=== PATIENT | female | born 1940 | race Caucasian/White ===

== ENCOUNTER 2021-12-08 14:23 | Inpatient (IN) | payer MEDICARE ==
[~2021-12-08] VITALS: Ht 160 cm; Wt 54.5 kg
[2021-12-08 15:10] LABS: BASOPHILS # (AUTO) 0.1 (0.0-0.1); EOSINOPHILS # (AUTO) 0.1 (0.0-0.4); EOSINOPHILS % 1.7 % (0.0-6.0); HEMOGLOBIN 10.6 g/dL (12.0-16.0); LYMPHOCYTES # (AUTO) 2.1 (1.0-3.2); MEAN CORPUSCULAR HGB CONC 31.2 g/dL (31-35); MEAN CORPUSCULAR VOLUME 86.5 fL (81-99); MONOCYTES # (AUTO) 0.8 (0.2-0.8); MONOCYTES % 11.5 % (4.4-11.3); NEUTROPHILS % 56.5 % (38.7-80.0); PLATELET COUNT 324 x10e3/uL (140-360); RED BLOOD COUNT 3.93 x10e6/uL (3.6-5.1); RED CELL DISTRIBUTION WIDTH 14.1 % (11.7-14.4)
[2021-12-08 15:22] LABS: ALBUMIN 3.1 g/dL (3.5-5.0); ALBUMIN/GLOBULIN RATIO 0.8 (0.8-2.0); ANION GAP 15.2 mmol/L (8-16); CALCIUM 8.9 mg/dL (8.4-10.2); CREATININE, SERUM 0.81 mg/dL (0.57-1.11); POTASSIUM 3.2 mmol/L (3.5-5.1)
[2021-12-08] MEDS ORDERED: SODIUM CHLORIDE 0.9% 1000ML 1,000 ML IV STA (15:56)
[2021-12-08] MEDS ORDERED: KETOROLAC TROMETHAMINE 30 MG/ML VIAL IV STA (15:56)
[2021-12-08] MEDS ORDERED: ONDANSETRON HCL INJ 2MG/ML 2ML 2 MG/ML VIAL IV PRN (16:00)
[2021-12-08] MEDS ORDERED: XARELTO10 MG PO (17:14)
[2021-12-08] MEDS ORDERED: CITALOPRAM HBR40 MG PO (17:14)
[2021-12-08] MEDS ORDERED: CARVEDILOL12.5 MG PO (17:14)
[2021-12-08] MEDS ORDERED: ULTRAM 50MG50 MG PO (17:14)
[2021-12-08] MEDS ORDERED: LOSARTAN POTASS25 MG PO (17:14)
[2021-12-08] MEDS ORDERED: CLONAZEPAM1 MG PO (17:14)
[2021-12-08 18:36] VITALS: BP 156/56
[2021-12-08 20:00] VITALS: BP 157/56
[2021-12-08] MEDS: KETOROLAC TROMETHAMINE 30 MG/ML VIAL IV PRN (22:03)
[2021-12-09] VITALS (7 sets, daily range): BP systolic 160–192; BP diastolic 57–85
[2021-12-09] MEDS: SODIUM CHLORIDE 0.9% 1000ML 1,000 ML IV SCH ×4 (00:16→17:14)
[2021-12-09 06:04] LABS: BASOPHILS # (AUTO) 0.1 (0.0-0.1); EOSINOPHILS # (AUTO) 0.1 (0.0-0.4); EOSINOPHILS % 2.9 % (0.0-6.0); HEMATOCRIT 29.9 % (34.2-44.1); HEMOGLOBIN 9.3 g/dL (12.0-16.0); LYMPHOCYTES # (AUTO) 2.1 (1.0-3.2); LYMPHOCYTES % 42.1 % (18.0-39.1); MEAN CORPUSCULAR HGB CONC 31.1 g/dL (31-35); MEAN CORPUSCULAR VOLUME 86.7 fL (81-99); MONOCYTES # (AUTO) 0.7 (0.2-0.8); MONOCYTES % 14.5 % (4.4-11.3); NEUTROPHILS # (AUTO) 1.9 (2.1-6.9); NEUTROPHILS % 39.3 % (38.7-80.0); PLATELET COUNT 257 x10e3/uL (140-360); RED BLOOD COUNT 3.45 x10e6/uL (3.6-5.1); RED CELL DISTRIBUTION WIDTH 14.1 % (11.7-14.4)
[2021-12-09 06:31] LABS: ANION GAP 9.8 mmol/L (8-16); CALCIUM 8.5 mg/dL (8.4-10.2); CREATININE, SERUM 0.72 mg/dL (0.57-1.11)
[2021-12-09 06:59] LABS: POTASSIUM 2.8 mmol/L (3.5-5.1)
[2021-12-09] MEDS ORDERED: POTASSIUM CHLORIDE 20MEQ/100ML 100 ML IV ONE ×2 (07:45→10:45)
[2021-12-09] MEDS: CITALOPRAM HYDROBROMIDE 20 MG TAB PO SCH (10:02)
[2021-12-09] MEDS: CLONAZEPAM 1 MG TAB PO SCH ×2 (10:02→17:15)
[2021-12-09] MEDS: LOSARTAN POTASSIUM 25 MG TAB PO SCH ×2 (10:03→17:15)
[2021-12-09] MEDS: RIVAROXABAN 10 MG TABLET PO SCH (10:03)
[2021-12-09] MEDS: CARVEDILOL 12.5 MG TAB PO SCH ×2 (10:04→17:14)
[2021-12-09] MEDS: CLINDAMYCIN PHOS 900MG/ 50ML 50 ML IV SCH ×2 (14:00→22:15)
[2021-12-09] MEDS ORDERED: POTASSIUM CHLORIDE 20 MEQ TAB CR PO SCH (18:00)
[2021-12-09] MEDS: KETOROLAC TROMETHAMINE 30 MG/ML VIAL IV PRN (20:19)
[2021-12-10] VITALS (9 sets, daily range): BP systolic 140–184; BP diastolic 63–80
[2021-12-10] MEDS: SODIUM CHLORIDE 0.9% 1000ML 1,000 ML IV SCH ×3 (00:01→16:08)
[2021-12-10] MEDS: CLONIDINE HCL 0.1 MG TAB PO PRN ×2 (00:01→12:02)
[2021-12-10] MEDS: CLINDAMYCIN PHOS 900MG/ 50ML 50 ML IV SCH (05:35)
[2021-12-10] MEDS: LOSARTAN POTASSIUM 25 MG TAB PO SCH ×2 (08:54→16:09)
[2021-12-10] MEDS: DOCUSATE SODIUM 100 MG CAP PO SCH ×2 (08:54→16:08)
[2021-12-10] MEDS: CLONAZEPAM 1 MG TAB PO SCH ×2 (08:54→16:09)
[2021-12-10] MEDS: CITALOPRAM HYDROBROMIDE 20 MG TAB PO SCH (08:54)
[2021-12-10] MEDS: RIVAROXABAN 10 MG TABLET PO SCH (08:55)
[2021-12-10] MEDS: CARVEDILOL 12.5 MG TAB PO SCH ×2 (08:55→16:09)
[2021-12-10 09:41] LABS: CREATININE, SERUM 0.75 mg/dL (0.57-1.11)
[2021-12-10] MEDS: KETOROLAC TROMETHAMINE 30 MG/ML VIAL IV PRN (20:28)
[2021-12-11] VITALS (9 sets, daily range): BP systolic 143–193; BP diastolic 53–69
[2021-12-11] MEDS: CLONIDINE HCL 0.1 MG TAB PO PRN (00:04)
[2021-12-11] MEDS: SODIUM CHLORIDE 0.9% 1000ML 1,000 ML IV SCH ×3 (00:04→16:00)
[2021-12-11] MEDS: HYDRALAZINE HCL 20 MG/ML VIAL IV PRN ×2 (06:06→11:43)
[2021-12-11 06:09] LABS: BASOPHILS # (AUTO) 0.1 (0.0-0.1); BASOPHILS % 0.8 % (0.0-1.0); EOSINOPHILS # (AUTO) 0.2 (0.0-0.4); EOSINOPHILS % 3.1 % (0.0-6.0); HEMATOCRIT 31.3 % (34.2-44.1); LYMPHOCYTES # (AUTO) 1.5 (1.0-3.2); LYMPHOCYTES % 22.7 % (18.0-39.1); MEAN CORPUSCULAR HEMOGLOBIN 27.4 pg (28-32); MEAN CORPUSCULAR HGB CONC 31.9 g/dL (31-35); MEAN CORPUSCULAR VOLUME 85.8 fL (81-99); MONOCYTES # (AUTO) 0.7 (0.2-0.8); MONOCYTES % 10.8 % (4.4-11.3); NEUTROPHILS % 62.1 % (38.7-80.0); PLATELET COUNT 278 x10e3/uL (140-360); RED BLOOD COUNT 3.65 x10e6/uL (3.6-5.1); RED CELL DISTRIBUTION WIDTH 14.3 % (11.7-14.4)
[2021-12-11 06:42] LABS: ALBUMIN 2.9 g/dL (3.5-5.0); ALBUMIN/GLOBULIN RATIO 0.9 (0.8-2.0); ANION GAP 9.5 mmol/L (8-16); CALCIUM 8.7 mg/dL (8.4-10.2); CREATININE, SERUM 0.69 mg/dL (0.57-1.11); MAGNESIUM 1.9 MG/DL (1.3-2.1); POTASSIUM 3.5 mmol/L (3.5-5.1)
[2021-12-11] MEDS: DOCUSATE SODIUM 100 MG CAP PO SCH ×2 (09:00→17:28)
[2021-12-11] MEDS: CLONAZEPAM 1 MG TAB PO SCH ×2 (09:00→17:29)
[2021-12-11] MEDS: CARVEDILOL 12.5 MG TAB PO SCH ×2 (09:00→17:29)
[2021-12-11] MEDS: LOSARTAN POTASSIUM 25 MG TAB PO SCH ×2 (09:00→17:29)
[2021-12-11] MEDS: KETOROLAC TROMETHAMINE 30 MG/ML VIAL IV PRN (09:06)
[2021-12-11] MEDS ORDERED: IOPAMIDOL 300MG/ML 100 ML INFUS..BTL IV ONE ×2 (14:31→14:59)
[2021-12-11] MEDS ORDERED: HEPARIN SOD/SOD CHLORIDE 2,000 ML ONE (14:31)
[2021-12-11] MEDS ORDERED: SODIUM CHLORIDE 0.9% 1000ML 1,000 ML ONE ×2 (14:32→15:01)
[2021-12-11] MEDS ORDERED: MIDAZOLAM HCL 2 MG/2 ML VIAL ONE ×3 (14:32→16:37)
[2021-12-11] MEDS ORDERED: FENTANYL CITRATE/PF 100MCG/2 ML INJ ONE ×2 (14:33→16:37)
[2021-12-11] MEDS ORDERED: VERAPAMIL HCL 2.5 MG/ML 2 ML VIAL ONE (15:02)
[2021-12-11] MEDS ORDERED: CLOPIDOGREL BISULFATE 75 MG TAB ONE (16:55)
[2021-12-11] MEDS ORDERED: ASPIRIN 325 MG TAB ONE (16:55)
[2021-12-11] MEDS: RIVAROXABAN 10 MG TABLET PO SCH (17:27)
[2021-12-11] MEDS: CITALOPRAM HYDROBROMIDE 20 MG TAB PO SCH (17:27)
[2021-12-12] VITALS (10 sets, daily range): BP systolic 151–196; BP diastolic 50–61
[2021-12-12] MEDS: LACTULOSE SYRUP 20 GM/30 ML UDC PO PRN (00:24)
[2021-12-12] MEDS: SODIUM CHLORIDE 0.9% 1000ML 1,000 ML IV SCH ×3 (08:00→16:00)
[2021-12-12] MEDS: ASPIRIN 81 MG CHEW TAB PO SCH (09:52)
[2021-12-12] MEDS: CITALOPRAM HYDROBROMIDE 20 MG TAB PO SCH (09:52)
[2021-12-12] MEDS: DOCUSATE SODIUM 100 MG CAP PO SCH ×2 (09:53→17:47)
[2021-12-12] MEDS: CARVEDILOL 12.5 MG TAB PO SCH ×2 (09:53→17:47)
[2021-12-12] MEDS: CLONAZEPAM 1 MG TAB PO SCH ×2 (09:54→17:47)
[2021-12-12] MEDS: CLOPIDOGREL BISULFATE 75 MG TAB PO SCH (09:54)
[2021-12-12] MEDS: RIVAROXABAN 10 MG TABLET PO SCH (09:54)
[2021-12-12] MEDS: LOSARTAN POTASSIUM 25 MG TAB PO SCH ×2 (09:54→17:47)
[2021-12-12] MEDS ORDERED: BISACODYL 10 MG SUPP PR ONE (14:00)
[2021-12-12] MEDS: KETOROLAC TROMETHAMINE 30 MG/ML VIAL IV PRN (20:27)
[2021-12-13] VITALS (9 sets, daily range): BP systolic 122–192; BP diastolic 51–85
[2021-12-13 06:00] LABS: BASOPHILS % 0.6 % (0.0-1.0); EOSINOPHILS # (AUTO) 0.1 (0.0-0.4); EOSINOPHILS % 1.9 % (0.0-6.0); LYMPHOCYTES % 19.3 % (18.0-39.1); MEAN CORPUSCULAR HEMOGLOBIN 26.7 pg (28-32); MEAN CORPUSCULAR VOLUME 86.1 fL (81-99); MONOCYTES # (AUTO) 0.7 (0.2-0.8); MONOCYTES % 13.6 % (4.4-11.3); NEUTROPHILS # (AUTO) 3.4 (2.1-6.9); NEUTROPHILS % 64.4 % (38.7-80.0); PLATELET COUNT 228 x10e3/uL (140-360); RED BLOOD COUNT 3.37 x10e6/uL (3.6-5.1); RED CELL DISTRIBUTION WIDTH 14.7 % (11.7-14.4)
[2021-12-13 06:30] LABS: ALBUMIN 2.8 g/dL (3.5-5.0); ALBUMIN/GLOBULIN RATIO 0.9 (0.8-2.0); ANION GAP 10.8 mmol/L (8-16); CALCIUM 8.6 mg/dL (8.4-10.2); CREATININE, SERUM 0.65 mg/dL (0.57-1.11)
[2021-12-13 06:34] LABS: POTASSIUM 2.8 mmol/L (3.5-5.1)
[2021-12-13] MEDS ORDERED: POTASSIUM CHLORIDE 20 MEQ TAB CR PO ONE ×2 (07:15→11:15)
[2021-12-13] MEDS: ASPIRIN 81 MG CHEW TAB PO SCH (08:47)
[2021-12-13] MEDS: SODIUM CHLORIDE 0.9% 1000ML 1,000 ML IV SCH ×4 (08:47→23:48)
[2021-12-13] MEDS: CITALOPRAM HYDROBROMIDE 20 MG TAB PO SCH (08:48)
[2021-12-13] MEDS: AMLODIPINE BESYLATE 5 MG TAB PO SCH (08:48)
[2021-12-13] MEDS: LOSARTAN POTASSIUM 25 MG TAB PO SCH ×2 (08:48→16:34)
[2021-12-13] MEDS: CLONAZEPAM 1 MG TAB PO SCH ×2 (08:48→16:33)
[2021-12-13] MEDS: CLOPIDOGREL BISULFATE 75 MG TAB PO SCH (08:48)
[2021-12-13] MEDS: DOCUSATE SODIUM 100 MG CAP PO SCH ×2 (08:48→16:33)
[2021-12-13] MEDS: RIVAROXABAN 10 MG TABLET PO SCH (08:48)
[2021-12-13] MEDS: CARVEDILOL 12.5 MG TAB PO SCH ×2 (08:48→16:34)
[2021-12-13] MEDS: LACTULOSE SYRUP 20 GM/30 ML UDC PO PRN (12:04)
[2021-12-13] MEDS: TRAMADOL HCL 50 MG TAB PO PRN (18:21)
[2021-12-14] VITALS (8 sets, daily range): BP systolic 141–167; BP diastolic 50–58
[2021-12-14 06:16] LABS: BASOPHILS % 0.5 % (0.0-1.0); EOSINOPHILS # (AUTO) 0.1 (0.0-0.4); EOSINOPHILS % 1.3 % (0.0-6.0); HEMATOCRIT 27.6 % (34.2-44.1); HEMOGLOBIN 8.6 g/dL (12.0-16.0); LYMPHOCYTES # (AUTO) 1.4 (1.0-3.2); LYMPHOCYTES % 22.7 % (18.0-39.1); MEAN CORPUSCULAR HGB CONC 31.2 g/dL (31-35); MEAN CORPUSCULAR VOLUME 86.8 fL (81-99); MONOCYTES # (AUTO) 0.9 (0.2-0.8); NEUTROPHILS # (AUTO) 3.8 (2.1-6.9); NEUTROPHILS % 61.2 % (38.7-80.0); PLATELET COUNT 196 x10e3/uL (140-360); RED BLOOD COUNT 3.18 x10e6/uL (3.6-5.1)
[2021-12-14 06:57] LABS: ALBUMIN 2.5 g/dL (3.5-5.0); ALBUMIN/GLOBULIN RATIO 0.8 (0.8-2.0); ANION GAP 7.5 mmol/L (8-16); CALCIUM 8.5 mg/dL (8.4-10.2); CREATININE, SERUM 0.66 mg/dL (0.57-1.11); POTASSIUM 3.5 mmol/L (3.5-5.1)
[2021-12-14] MEDS: SODIUM CHLORIDE 0.9% 1000ML 1,000 ML IV SCH ×2 (08:00→16:53)
[2021-12-14] MEDS: DOCUSATE SODIUM 100 MG CAP PO SCH ×2 (09:00→17:21)
[2021-12-14] MEDS: ASPIRIN 81 MG CHEW TAB PO SCH (09:27)
[2021-12-14] MEDS: CITALOPRAM HYDROBROMIDE 20 MG TAB PO SCH (09:27)
[2021-12-14] MEDS: CARVEDILOL 12.5 MG TAB PO SCH ×2 (09:28→17:21)
[2021-12-14] MEDS: RIVAROXABAN 10 MG TABLET PO SCH (09:28)
[2021-12-14] MEDS: CLOPIDOGREL BISULFATE 75 MG TAB PO SCH (09:28)
[2021-12-14] MEDS: CLONAZEPAM 1 MG TAB PO SCH ×2 (09:28→17:22)
[2021-12-14] MEDS: LOSARTAN POTASSIUM 25 MG TAB PO SCH ×2 (09:28→17:22)
[2021-12-14] MEDS: AMLODIPINE BESYLATE 5 MG TAB PO SCH (09:28)
[2021-12-15] VITALS: BP 153/64
[2021-12-15] MEDS: TRAMADOL HCL 50 MG TAB PO PRN ×2 (04:32→10:41)
[2021-12-15 05:23] VITALS: BP 178/55
[2021-12-15 05:56] LABS: BASOPHILS # (AUTO) 0.1 (0.0-0.1); BASOPHILS % 0.7 % (0.0-1.0); EOSINOPHILS # (AUTO) 0.2 (0.0-0.4); EOSINOPHILS % 3.2 % (0.0-6.0); HEMATOCRIT 27.5 % (34.2-44.1); HEMOGLOBIN 8.4 g/dL (12.0-16.0); LYMPHOCYTES # (AUTO) 1.6 (1.0-3.2); LYMPHOCYTES % 23.9 % (18.0-39.1); MEAN CORPUSCULAR HEMOGLOBIN 26.8 pg (28-32); MEAN CORPUSCULAR HGB CONC 30.5 g/dL (31-35); MEAN CORPUSCULAR VOLUME 87.9 fL (81-99); MONOCYTES # (AUTO) 0.9 (0.2-0.8); MONOCYTES % 12.4 % (4.4-11.3); NEUTROPHILS # (AUTO) 4.1 (2.1-6.9); NEUTROPHILS % 59.5 % (38.7-80.0); PLATELET COUNT 188 x10e3/uL (140-360); RED BLOOD COUNT 3.13 x10e6/uL (3.6-5.1); RED CELL DISTRIBUTION WIDTH 15.7 % (11.7-14.4)
[2021-12-15 06:27] LABS: ALANINE AMINOTRANSFERASE < 6 IU/L (0-55); ALBUMIN 2.4 g/dL (3.5-5.0); ALBUMIN/GLOBULIN RATIO 0.8 (0.8-2.0); ALKALINE PHOSPHATASE 53 IU/L (40-150); ANION GAP 9.4 mmol/L (8-16); BLOOD UREA NITROGEN 7 mg/dL (7-26); BUN/CREATININE RATIO 12 (6-25); CARBON DIOXIDE 20 mmol/L (22-29); CHLORIDE 111 mmol/L (98-107); CREATININE, SERUM 0.58 mg/dL (0.57-1.11); GLUCOSE 114 mg/dL (74-118); POTASSIUM 3.4 mmol/L (3.5-5.1); SODIUM 137 mmol/L (136-145)
[2021-12-15 08:00] VITALS: BP 156/60
[2021-12-15] MEDS: SODIUM CHLORIDE 0.9% 1000ML 1,000 ML IV SCH ×3 (08:31→16:00)
[2021-12-15] MEDS: ASPIRIN 81 MG CHEW TAB PO SCH (09:25)
[2021-12-15] MEDS: CITALOPRAM HYDROBROMIDE 20 MG TAB PO SCH (09:25)
[2021-12-15] MEDS: LOSARTAN POTASSIUM 25 MG TAB PO SCH ×2 (09:25→17:00)
[2021-12-15] MEDS: DOCUSATE SODIUM 100 MG CAP PO SCH ×2 (09:25→17:08)
[2021-12-15] MEDS: AMLODIPINE BESYLATE 5 MG TAB PO SCH (09:25)
[2021-12-15] MEDS: CARVEDILOL 12.5 MG TAB PO SCH ×2 (09:26→17:00)
[2021-12-15] MEDS: CLOPIDOGREL BISULFATE 75 MG TAB PO SCH (09:26)
[2021-12-15] MEDS: CLONAZEPAM 1 MG TAB PO SCH ×2 (09:26→17:08)
[2021-12-15] MEDS: RIVAROXABAN 10 MG TABLET PO SCH (09:27)
[2021-12-15 12:14] VITALS: BP 140/83
[2021-12-15 20:00] VITALS: BP 139/51
[2021-12-15 21:00] VITALS: BP 139/51
[2021-12-16] VITALS (8 sets, daily range): BP systolic 142–169; BP diastolic 48–63
[2021-12-16] MEDS: TRAMADOL HCL 50 MG TAB PO PRN ×2 (00:20→06:04)
[2021-12-16] MEDS: SODIUM CHLORIDE 0.9% 1000ML 1,000 ML IV SCH ×2 (00:20→08:26)
[2021-12-16] MEDS: DOCUSATE SODIUM 100 MG CAP PO SCH ×2 (09:33→16:19)
[2021-12-16] MEDS: ASPIRIN 81 MG CHEW TAB PO SCH (09:33)
[2021-12-16] MEDS: CITALOPRAM HYDROBROMIDE 20 MG TAB PO SCH (09:33)
[2021-12-16] MEDS: CLOPIDOGREL BISULFATE 75 MG TAB PO SCH (09:34)
[2021-12-16] MEDS: RIVAROXABAN 10 MG TABLET PO SCH (09:34)
[2021-12-16] MEDS: LOSARTAN POTASSIUM 25 MG TAB PO SCH ×2 (09:58→16:20)
[2021-12-16] MEDS: CARVEDILOL 12.5 MG TAB PO SCH ×2 (09:58→16:20)
[2021-12-16] MEDS: AMLODIPINE BESYLATE 5 MG TAB PO SCH (09:59)
[2021-12-16] MEDS ORDERED: FUROSEMIDE INJ 10 MG/ML 2 ML VIAL IV NR (10:45)
[2021-12-16] MEDS: ALBUTEROL/IPRATROPIUM 3 ML NEB NEB NR ×2 (11:10→11:20)
[2021-12-16] MEDS: ALBUTEROL/IPRATROPIUM 3 ML NEB NEB PRN (17:30)
[2021-12-17] VITALS (8 sets, daily range): BP systolic 144–166; BP diastolic 49–93
[2021-12-17] MEDS: TRAMADOL HCL 50 MG TAB PO PRN ×2 (01:18→20:24)
[2021-12-17] MEDS: ALBUTEROL/IPRATROPIUM 3 ML NEB NEB PRN ×3 (01:55→19:45)
[2021-12-17] MEDS ORDERED: FUROSEMIDE INJ 10 MG/ML 2 ML VIAL IV ONE (06:30)
[2021-12-17 06:46] LABS: BASOPHILS % 0.5 % (0.0-1.0); EOSINOPHILS # (AUTO) 0.2 (0.0-0.4); EOSINOPHILS % 2.7 % (0.0-6.0); HEMATOCRIT 28.1 % (34.2-44.1); HEMOGLOBIN 8.7 g/dL (12.0-16.0); LYMPHOCYTES # (AUTO) 1.7 (1.0-3.2); LYMPHOCYTES % 30.2 % (18.0-39.1); MEAN CORPUSCULAR HEMOGLOBIN 26.8 pg (28-32); MEAN CORPUSCULAR VOLUME 86.5 fL (81-99); MONOCYTES # (AUTO) 0.7 (0.2-0.8); MONOCYTES % 12.3 % (4.4-11.3); NEUTROPHILS % 54.1 % (38.7-80.0); PLATELET COUNT 237 x10e3/uL (140-360); RED BLOOD COUNT 3.25 x10e6/uL (3.6-5.1); RED CELL DISTRIBUTION WIDTH 15.2 % (11.7-14.4)
[2021-12-17 07:41] LABS: ALBUMIN 2.5 g/dL (3.5-5.0); ALBUMIN/GLOBULIN RATIO 0.8 (0.8-2.0); CALCIUM 8.2 mg/dL (8.4-10.2); CREATININE, SERUM 0.6 mg/dL (0.57-1.11); MAGNESIUM 1.9 MG/DL (1.3-2.1)
[2021-12-17] MEDS: ASPIRIN 81 MG CHEW TAB PO SCH (08:33)
[2021-12-17] MEDS: CITALOPRAM HYDROBROMIDE 20 MG TAB PO SCH (08:34)
[2021-12-17] MEDS: DOCUSATE SODIUM 100 MG CAP PO SCH ×2 (08:34→16:31)
[2021-12-17] MEDS: CARVEDILOL 12.5 MG TAB PO SCH ×2 (08:34→16:31)
[2021-12-17] MEDS: RIVAROXABAN 10 MG TABLET PO SCH (08:35)
[2021-12-17] MEDS: AMLODIPINE BESYLATE 5 MG TAB PO SCH (08:35)
[2021-12-17] MEDS: CLOPIDOGREL BISULFATE 75 MG TAB PO SCH (08:35)
[2021-12-17] MEDS: LOSARTAN POTASSIUM 25 MG TAB PO SCH ×2 (08:35→16:31)
[2021-12-17] MEDS ORDERED: POTASSIUM CHLORIDE 20 MEQ TAB CR PO ONE (10:15)
[2021-12-18] VITALS (8 sets, daily range): BP systolic 108–169; BP diastolic 50–59
[2021-12-18 05:58] LABS: BASOPHILS # (AUTO) 0.1 (0.0-0.1); BASOPHILS % 0.8 % (0.0-1.0); EOSINOPHILS # (AUTO) 0.2 (0.0-0.4); EOSINOPHILS % 2.9 % (0.0-6.0); HEMATOCRIT 28.6 % (34.2-44.1); LYMPHOCYTES # (AUTO) 1.9 (1.0-3.2); LYMPHOCYTES % 29.7 % (18.0-39.1); MEAN CORPUSCULAR HEMOGLOBIN 26.9 pg (28-32); MEAN CORPUSCULAR HGB CONC 31.5 g/dL (31-35); MEAN CORPUSCULAR VOLUME 85.6 fL (81-99); MONOCYTES # (AUTO) 0.9 (0.2-0.8); MONOCYTES % 13.4 % (4.4-11.3); NEUTROPHILS # (AUTO) 3.4 (2.1-6.9); NEUTROPHILS % 52.9 % (38.7-80.0); PLATELET COUNT 269 x10e3/uL (140-360); RED BLOOD COUNT 3.34 x10e6/uL (3.6-5.1); RED CELL DISTRIBUTION WIDTH 14.8 % (11.7-14.4)
[2021-12-18 06:17] LABS: ALBUMIN 2.5 g/dL (3.5-5.0); ALBUMIN/GLOBULIN RATIO 0.7 (0.8-2.0); ANION GAP 10.4 mmol/L (8-16); CALCIUM 8.7 mg/dL (8.4-10.2); CREATININE, SERUM 0.6 mg/dL (0.57-1.11); POTASSIUM 3.4 mmol/L (3.5-5.1)
[2021-12-18] MEDS: RIVAROXABAN 10 MG TABLET PO SCH (09:31)
[2021-12-18] MEDS: LOSARTAN POTASSIUM 25 MG TAB PO SCH ×2 (09:31→17:45)
[2021-12-18] MEDS: AMLODIPINE BESYLATE 5 MG TAB PO SCH (09:31)
[2021-12-18] MEDS: CARVEDILOL 12.5 MG TAB PO SCH ×2 (09:31→17:46)
[2021-12-18] MEDS: CITALOPRAM HYDROBROMIDE 20 MG TAB PO SCH (09:31)
[2021-12-18] MEDS: ASPIRIN 81 MG CHEW TAB PO SCH (09:31)
[2021-12-18] MEDS: DOCUSATE SODIUM 100 MG CAP PO SCH ×2 (09:31→17:45)
[2021-12-18] MEDS: CLOPIDOGREL BISULFATE 75 MG TAB PO SCH (09:31)
[2021-12-18] MEDS: TRAMADOL HCL 50 MG TAB PO PRN (12:05)
[2021-12-18] MEDS: LACTULOSE SYRUP 20 GM/30 ML UDC PO PRN (12:10)
[2021-12-18] MEDS ORDERED: SODIUM CHLORIDE 0.9% 250ML 250 ML ONE (12:28)
[2021-12-18] MEDS: Morphine 2mg Syringe 2 MG/ML SYR IV PRN ×2 (14:10→23:16)
[2021-12-19 01:43] VITALS: BP 102/50
[2021-12-19 05:20] VITALS: BP 91/79
[2021-12-19] MEDS ORDERED: CLEOCIN HCL300 MG PO (07:21)
[2021-12-19 08:21] VITALS: BP 143/52
[2021-12-19] MEDS: DOCUSATE SODIUM 100 MG CAP PO SCH (08:29)
[2021-12-19] MEDS: LOSARTAN POTASSIUM 25 MG TAB PO SCH (08:29)
[2021-12-19] MEDS: CITALOPRAM HYDROBROMIDE 20 MG TAB PO SCH (08:29)
[2021-12-19] MEDS: ASPIRIN 81 MG CHEW TAB PO SCH (08:29)
[2021-12-19] MEDS: TRAMADOL HCL 50 MG TAB PO PRN (08:30)
[2021-12-19] MEDS: CLOPIDOGREL BISULFATE 75 MG TAB PO SCH (08:30)
[2021-12-19] MEDS: CARVEDILOL 12.5 MG TAB PO SCH (08:30)
[2021-12-19] MEDS: AMLODIPINE BESYLATE 5 MG TAB PO SCH (08:30)
[2021-12-19] MEDS: RIVAROXABAN 10 MG TABLET PO SCH (08:30)
[2021-12-19] MEDS ORDERED: ONDANSETRON HCL 4 MG ORAL DISINTEGRATING TAB PO PRN (10:30)
[2021-12-19] MEDS: Morphine 2mg Syringe 2 MG/ML SYR IV PRN (10:30)
[2021-12-19 10:40] VITALS: BP 143/52
[2021-12-19 12:45] VITALS: BP 120/58
== END 2021-12-19 12:45 | disposition home or self-care (01) | DRG 271 ==
LOC: ER 14:34 → ERHOLD 16:00 → MED/SURG3 18:26 → MED/SURG2 12-11 18:20
PROVIDERS: ADMIT Internal Medicine; ATTEND Internal Medicine
PROC: 047L3ZZ Dilation of Left Femoral Artery, Percutaneous Approach (ICD-10-PCS; principal; 2021-12-11)
PROC: 04CK3ZZ Extirpation of Matter from Right Femoral Artery, Percutaneous Approach (ICD-10-PCS; 2021-12-11)
PROC: B4101ZZ Fluoroscopy of Abdominal Aorta using Low Osmolar Contrast (ICD-10-PCS; 2021-12-11)
PROC: B41F1ZZ Fluoroscopy of Right Lower Extremity Arteries using Low Osmolar Contrast (ICD-10-PCS; 2021-12-11)
PROC: B41G1ZZ Fluoroscopy of Left Lower Extremity Arteries using Low Osmolar Contrast (ICD-10-PCS; 2021-12-11)
DX: E11.51 Type 2 diabetes mellitus with diabetic peripheral angiopathy without gangrene (principal); L03.115 Cellulitis of right lower limb; L97.919 Non-pressure chronic ulcer of unspecified part of right lower leg with unspecified severity; I70.238 Atherosclerosis of native arteries of right leg with ulceration of other part of lower leg; F41.9 Anxiety disorder, unspecified; Z20.822 Contact with and (suspected) exposure to COVID-19; R60.0 Localized edema; Z74.09 Other reduced mobility; Z86.73 Personal history of transient ischemic attack (TIA), and cerebral infarction without residual deficits; Z88.5 Allergy status to narcotic agent; Z28.9 Immunization not carried out for unspecified reason; E87.6 Hypokalemia; Z79.899 Other long term (current) drug therapy; E11.622 Type 2 diabetes mellitus with other skin ulcer; E78.5 Hyperlipidemia, unspecified; B96.20 Unspecified Escherichia coli [E. coli] as the cause of diseases classified elsewhere; B96.5 Pseudomonas (aeruginosa) (mallei) (pseudomallei) as the cause of diseases classified elsewhere; B96.89 Other specified bacterial agents as the cause of diseases classified elsewhere; I70.222 Atherosclerosis of native arteries of extremities with rest pain, left leg
CPT/HCPCS: 36247; 36415; 37225; 71045; 75625; 75716; 80048; 80053; 82948; 83735; 85025; 85651; 86141; 87040; 87071; 87186; 87205; 93925; 94640; 94799; 97139; 99152; 99153; 99251; 99284; C1724; C1725; C1760; C1769; C1887; C1894; J0360; J0692; J1885; J1940; J2250; J2270; J2405; J3010; J3480; J7030; J7050; Q0162; Q9967

== ENCOUNTER 2022-05-17 13:27 | Inpatient (IN) | payer MEDICARE ==
[~2022-05-17] VITALS: Ht 160 cm; Wt 54.4 kg
[~2022-05-17 13:27] MED LIST: CARVEDILOL12.5 MG PO; CITALOPRAM HBR40 MG PO; CLEOCIN HCL300 MG PO; CLONAZEPAM1 MG PO; LOSARTAN POTASS25 MG PO; ULTRAM 50MG50 MG PO; XARELTO10 MG PO
[2022-05-17 14:58] LABS: BASOPHILS # (AUTO) 0.1 (0.0-0.1); BASOPHILS % 0.5 % (0.0-1.0); EOSINOPHILS # (AUTO) 0.1 (0.0-0.4); EOSINOPHILS % 0.6 % (0.0-6.0); HEMATOCRIT 32.3 % (34.2-44.1); HEMOGLOBIN 9.5 g/dL (12.0-16.0); LYMPHOCYTES # (AUTO) 1.5 (1.0-3.2); LYMPHOCYTES % 13.2 % (18.0-39.1); MEAN CORPUSCULAR HEMOGLOBIN 24.9 pg (28-32); MEAN CORPUSCULAR HGB CONC 29.4 g/dL (31-35); MEAN CORPUSCULAR VOLUME 84.8 fL (81-99); MONOCYTES # (AUTO) 1.2 (0.2-0.8); MONOCYTES % 10.2 % (4.4-11.3); NEUTROPHILS # (AUTO) 8.6 (2.1-6.9); NEUTROPHILS % 75.1 % (38.7-80.0); PLATELET COUNT 257 x10e3/uL (140-360); RED BLOOD COUNT 3.81 x10e6/uL (3.6-5.1); RED CELL DISTRIBUTION WIDTH 17.7 % (11.7-14.4)
[2022-05-17] MEDS ORDERED: SODIUM CHLORIDE 0.9% 1000ML 1,000 ML IV ONE (15:00)
[2022-05-17 15:27] LABS: ALBUMIN 3.4 g/dL (3.5-5.0); ANION GAP 20.3 mmol/L (8-16); CALCIUM 8.8 mg/dL (8.4-10.2); CREATININE, SERUM 2.9 mg/dL (0.57-1.11); POTASSIUM 4.3 mmol/L (3.5-5.1)
[2022-05-17] MEDS ORDERED: ENOXAPARIN SOD INJ 60 MG/0.6 ML SYR SC STA (15:34)
[2022-05-17] MEDS ORDERED: ASPIRIN 81 MG CHEW TAB PO ONE ×2 (15:45→17:00)
[2022-05-17 16:20] LABS: CLARITY,URINE SL CLOUDY (CLEAR); COLOR,URINE AMBER (YELLOW); KETONES,URINE TRACE (NEGATIVE); LEUKOCYTE ESTERASE ,URINE NEGATIVE (NEGATIVE); NITRITE,URINE NEGATIVE (NEGATIVE); PROTEIN,URINE DIPSTICK 2+ (NEGATIVE); URINE UROBILINOGEN 0.2 mg/dL (0.2 - 1)
[2022-05-17 16:26] LABS: BACTERIA,URINE MODERATE /HPF; EPITHELIAL CELLS,URINE FEW /LPF
[2022-05-17] MEDS ORDERED: CEFTRIAXONE 1 GM VIAL IV ONE (17:00)
[2022-05-17] MEDS ORDERED: ONDANSETRON HCL INJ 2MG/ML 2ML 2 MG/ML VIAL IV PRN (17:00)
[2022-05-17] MEDS ORDERED: SODIUM CHLORIDE FLUSH 10 ML SYR INJ PRN (17:00)
[2022-05-17] MEDS ORDERED: CEFTRIAXONE 1 GM in SODIUM CHLORIDE 0.9% 100 ML IV ONE (17:15)
[2022-05-17 17:19] LABS: CREATINE KINASE MB 3.7 ng/mL (0-5.0)
[2022-05-17] MEDS ORDERED: MIDAZOLAM HCL 2 MG/2 ML VIAL ONE (17:53)
[2022-05-17] MEDS ORDERED: GENTAMICIN SULFATE 40 MG/ML 2 ML VIAL ONE (17:54)
[2022-05-17] MEDS ORDERED: FENTANYL CITRATE/PF 100MCG/2 ML INJ ONE (17:54)
[2022-05-17] MEDS ORDERED: Vancomycin IV 1 GM VIAL ONE (17:54)
[2022-05-17] MEDS ORDERED: SODIUM CHLORIDE 0.9% 500ML 500 ML ONE (17:55)
[2022-05-17] MEDS ORDERED: SODIUM CHLORIDE 0.9% 1000ML 2,000 ML ONE (17:55)
[2022-05-17] MEDS ORDERED: SODIUM CHLORIDE 0.9% 250ML 250 ML ONE (17:55)
[2022-05-17] MEDS ORDERED: ALBUTEROL SULF 0.083% NEB SOLN 3 ML NEB NEB PRN (19:30)
[2022-05-17] MEDS ORDERED: ACETAMINOPHEN 325 MG TAB PO PRN (19:30)
[2022-05-17] MEDS ORDERED: CLONAZEPAM 1 MG TAB PO PRN (19:30)
[2022-05-17] MEDS ORDERED: MELATONIN 3 MG TAB PO PRN (19:30)
[2022-05-17] MEDS ORDERED: DOCUSATE SODIUM 100 MG CAP PO PRN (19:30)
[2022-05-17] MEDS ORDERED: HYDRALAZINE HCL 20 MG/ML VIAL IV PRN (19:30)
[2022-05-17] MEDS ORDERED: TRAMADOL HCL 50 MG TAB PO PRN (19:30)
[2022-05-17 20:00] VITALS: BP 119/99
[2022-05-17] MEDS ORDERED: AMLODIPINE BESYL5 MG PO (20:48)
[2022-05-17] MEDS ORDERED: NEURONTIN100 MG PO (20:48)
[2022-05-17 21:00] VITALS: BP 119/99
[2022-05-17 22:11] VITALS: BP 119/99
[2022-05-18] VITALS (8 sets, daily range): BP systolic 140–166; BP diastolic 54–98
[2022-05-18] MEDS: LACTATED RINGER'S 1,000 ML INJ SCH ×3 (00:46→22:54)
[2022-05-18] MEDS: Doxycycline IV 100 MG in SODIUM CHLORIDE 0.9% 100 ML IV SCH ×3 (00:47→20:22)
[2022-05-18 05:51] LABS: BASOPHILS # (AUTO) 0.1 (0.0-0.1); BASOPHILS % 0.6 % (0.0-1.0); EOSINOPHILS % 0.4 % (0.0-6.0); HEMATOCRIT 29.3 % (34.2-44.1); LYMPHOCYTES # (AUTO) 1.9 (1.0-3.2); MEAN CORPUSCULAR HEMOGLOBIN 25.1 pg (28-32); MEAN CORPUSCULAR HGB CONC 30.7 g/dL (31-35); MEAN CORPUSCULAR VOLUME 81.6 fL (81-99); MONOCYTES # (AUTO) 1.3 (0.2-0.8); MONOCYTES % 12.8 % (4.4-11.3); NEUTROPHILS % 67.9 % (38.7-80.0); PLATELET COUNT 267 x10e3/uL (140-360); RED BLOOD COUNT 3.59 x10e6/uL (3.6-5.1); RED CELL DISTRIBUTION WIDTH 17.6 % (11.7-14.4)
[2022-05-18 06:11] LABS: CALCIUM 8.3 mg/dL (8.4-10.2); CREATININE, SERUM 2.33 mg/dL (0.57-1.11)
[2022-05-18 06:31] LABS: MAGNESIUM 2.5 MG/DL (1.3-2.1); PHOSPHORUS 5.9 MG/DL (2.3-4.7)
[2022-05-18 07:36] LABS: CREATINE KINASE MB 4.7 ng/mL (0-5.0)
[2022-05-18] MEDS: MULTIVITAMINS/MINERALS TAB PO SCH (09:27)
[2022-05-18] MEDS: CITALOPRAM HYDROBROMIDE 20 MG TAB PO SCH (09:27)
[2022-05-18] MEDS: ASPIRIN 81 MG ENTERIC COATED PO SCH (09:27)
[2022-05-18] MEDS: ENOXAPARIN 30 MG/0.3 ML SYR SC SCH (16:48)
[2022-05-18 18:52] LABS: CREATINE KINASE MB 3.9 ng/mL (0-5.0)
[2022-05-19] VITALS (7 sets, daily range): BP systolic 133–173; BP diastolic 74–87
[2022-05-19 03:47] LABS: CREATINE KINASE MB 3.1 ng/mL (0-5.0)
[2022-05-19] MEDS: CLOPIDOGREL BISULFATE 75 MG TAB PO SCH ×2 (05:43→09:04)
[2022-05-19] MEDS: METOPROLOL SUCCINATE 25 MG TAB XL PO SCH ×3 (05:44→23:13)
[2022-05-19] MEDS: NITROGLYCERIN 0.4 MG SUBL SL PRN (09:03)
[2022-05-19] MEDS: CITALOPRAM HYDROBROMIDE 20 MG TAB PO SCH (09:04)
[2022-05-19] MEDS: ASPIRIN 81 MG ENTERIC COATED PO SCH (09:04)
[2022-05-19] MEDS: MULTIVITAMINS/MINERALS TAB PO SCH (09:04)
[2022-05-19] MEDS: Doxycycline IV 100 MG in SODIUM CHLORIDE 0.9% 100 ML IV SCH ×2 (09:05→21:00)
[2022-05-19] MEDS: COLLAGENASE 5 GM TUBE TP SCH (09:06)
[2022-05-19] MEDS ORDERED: METOPROLOL SUCCINATE 25 MG TAB XL PO ONE (14:00)
[2022-05-19] MEDS: ENOXAPARIN 30 MG/0.3 ML SYR SC SCH (17:51)
[2022-05-19] MEDS: DOCUSATE SODIUM 100 MG CAP PO SCH (17:51)
[2022-05-19] MEDS: ATORVASTATIN 20 MG TAB PO SCH (21:01)
[2022-05-19] MEDS: GUAIFENESIN/DEXTROMETHORPHAN LIQD 5 ML UDC PO PRN (23:13)
[2022-05-20] VITALS (7 sets, daily range): BP systolic 134–183; BP diastolic 73–88
[2022-05-20 05:56] LABS: BASOPHILS # (AUTO) 0.1 (0.0-0.1); BASOPHILS % 0.5 % (0.0-1.0); EOSINOPHILS # (AUTO) 0.1 (0.0-0.4); EOSINOPHILS % 0.5 % (0.0-6.0); HEMATOCRIT 32.3 % (34.2-44.1); HEMOGLOBIN 9.2 g/dL (12.0-16.0); LYMPHOCYTES # (AUTO) 1.4 (1.0-3.2); LYMPHOCYTES % 13.1 % (18.0-39.1); MEAN CORPUSCULAR HEMOGLOBIN 24.7 pg (28-32); MEAN CORPUSCULAR HGB CONC 28.5 g/dL (31-35); MEAN CORPUSCULAR VOLUME 86.6 fL (81-99); MONOCYTES # (AUTO) 1.4 (0.2-0.8); MONOCYTES % 12.6 % (4.4-11.3); NEUTROPHILS # (AUTO) 7.9 (2.1-6.9); NEUTROPHILS % 72.8 % (38.7-80.0); PLATELET COUNT 290 x10e3/uL (140-360); RED BLOOD COUNT 3.73 x10e6/uL (3.6-5.1); RED CELL DISTRIBUTION WIDTH 17.4 % (11.7-14.4)
[2022-05-20 06:21] LABS: ANION GAP 13.8 mmol/L (8-16); CALCIUM 8.9 mg/dL (8.4-10.2); CREATININE, SERUM 0.77 mg/dL (0.57-1.11); POTASSIUM 3.8 mmol/L (3.5-5.1)
[2022-05-20] MEDS: GEMTESA 75 MG PO SCH (09:00)
[2022-05-20] MEDS: ASPIRIN 81 MG ENTERIC COATED PO SCH (09:38)
[2022-05-20] MEDS: CITALOPRAM HYDROBROMIDE 20 MG TAB PO SCH (09:38)
[2022-05-20] MEDS: MULTIVITAMINS/MINERALS TAB PO SCH (09:38)
[2022-05-20] MEDS: Doxycycline IV 100 MG in SODIUM CHLORIDE 0.9% 100 ML IV SCH ×2 (09:38→22:07)
[2022-05-20] MEDS: DOCUSATE SODIUM 100 MG CAP PO SCH ×2 (09:39→17:46)
[2022-05-20] MEDS: CLOPIDOGREL BISULFATE 75 MG TAB PO SCH (09:39)
[2022-05-20] MEDS: COLLAGENASE 5 GM TUBE TP SCH (09:40)
[2022-05-20] MEDS: METOPROLOL SUCCINATE 25 MG TAB XL PO SCH ×2 (09:40→22:08)
[2022-05-20] MEDS: ENOXAPARIN 30 MG/0.3 ML SYR SC SCH (17:46)
[2022-05-20] MEDS: ATORVASTATIN 20 MG TAB PO SCH (22:08)
[2022-05-20] MEDS: GUAIFENESIN/DEXTROMETHORPHAN LIQD 5 ML UDC PO PRN (22:08)
[2022-05-21] VITALS (7 sets, daily range): BP systolic 136–165; BP diastolic 64–87
[2022-05-21] MEDS: METOPROLOL SUCCINATE 25 MG TAB XL PO SCH ×2 (08:28→21:27)
[2022-05-21] MEDS: CITALOPRAM HYDROBROMIDE 20 MG TAB PO SCH (08:28)
[2022-05-21] MEDS: DOXYCYCLINE HYCLATE TABLET 100 MG TAB PO SCH ×2 (08:28→17:01)
[2022-05-21] MEDS: CLOPIDOGREL BISULFATE 75 MG TAB PO SCH (08:28)
[2022-05-21] MEDS: MULTIVITAMINS/MINERALS TAB PO SCH (08:29)
[2022-05-21] MEDS: DOCUSATE SODIUM 100 MG CAP PO SCH ×2 (08:29→17:01)
[2022-05-21] MEDS: ASPIRIN 81 MG ENTERIC COATED PO SCH (08:29)
[2022-05-21] MEDS: GEMTESA 75 MG PO SCH (09:00)
[2022-05-21] MEDS ORDERED: SODIUM CHLORIDE FLUSH 10 ML SYR INJ PRN (09:15)
[2022-05-21] MEDS: NITROGLYCERIN 0.4 MG SUBL SL PRN ×3 (10:54→21:44)
[2022-05-21] MEDS ORDERED: ONDANSETRON HCL 4 MG ORAL DISINTEGRATING TAB PO PRN (11:30)
[2022-05-21] MEDS: COLLAGENASE 5 GM TUBE TP SCH (11:46)
[2022-05-21] MEDS ORDERED: SODIUM CHLORIDE 0.9% 1000ML 1,000 ML ONE (17:22)
[2022-05-21] MEDS: ATORVASTATIN 20 MG TAB PO SCH (21:26)
[2022-05-22] VITALS (12 sets, daily range): BP systolic 138–163; BP diastolic 70–93
[2022-05-22] MEDS: SODIUM CHLORIDE 0.9% 1000ML 1,000 ML IV SCH ×2 (01:05→10:04)
[2022-05-22 05:38] LABS: BASOPHILS # (AUTO) 0.1 (0.0-0.1); BASOPHILS % 0.7 % (0.0-1.0); EOSINOPHILS # (AUTO) 0.2 (0.0-0.4); EOSINOPHILS % 1.4 % (0.0-6.0); HEMATOCRIT 32.9 % (34.2-44.1); HEMOGLOBIN 9.6 g/dL (12.0-16.0); LYMPHOCYTES # (AUTO) 1.3 (1.0-3.2); LYMPHOCYTES % 10.4 % (18.0-39.1); MEAN CORPUSCULAR HEMOGLOBIN 24.7 pg (28-32); MEAN CORPUSCULAR HGB CONC 29.2 g/dL (31-35); MEAN CORPUSCULAR VOLUME 84.6 fL (81-99); MONOCYTES # (AUTO) 1.5 (0.2-0.8); MONOCYTES % 11.6 % (4.4-11.3); NEUTROPHILS # (AUTO) 9.7 (2.1-6.9); NEUTROPHILS % 75.4 % (38.7-80.0); PLATELET COUNT 282 x10e3/uL (140-360); RED BLOOD COUNT 3.89 x10e6/uL (3.6-5.1); RED CELL DISTRIBUTION WIDTH 17.5 % (11.7-14.4)
[2022-05-22] MEDS: NITROGLYCERIN 0.4 MG SUBL SL PRN (05:39)
[2022-05-22 06:02] LABS: INR 1.25; PROTHROMBIN TIME 16.8 seconds (11.9-14.5)
[2022-05-22 06:03] LABS: PARTIAL THROMBOPLASTIN TIME 38.7 seconds (23.8-35.5)
[2022-05-22 06:25] LABS: ANION GAP 14.9 mmol/L (8-16); CALCIUM 8.6 mg/dL (8.4-10.2); CREATININE, SERUM 0.7 mg/dL (0.57-1.11); POTASSIUM 3.9 mmol/L (3.5-5.1)
[2022-05-22] MEDS: DOCUSATE SODIUM 100 MG CAP PO SCH ×2 (09:00→17:00)
[2022-05-22] MEDS: CITALOPRAM HYDROBROMIDE 20 MG TAB PO SCH (09:00)
[2022-05-22] MEDS: DOXYCYCLINE HYCLATE TABLET 100 MG TAB PO SCH ×2 (09:00→17:00)
[2022-05-22] MEDS: MULTIVITAMINS/MINERALS TAB PO SCH (09:00)
[2022-05-22] MEDS: GEMTESA 75 MG PO SCH (09:00)
[2022-05-22] MEDS: COLLAGENASE 5 GM TUBE TP SCH (09:38)
[2022-05-22] MEDS: METOPROLOL SUCCINATE 25 MG TAB XL PO SCH (10:04)
[2022-05-22] MEDS ORDERED: HEPARIN SOD/SOD CHLORIDE 2,000 ML ONE (12:25)
[2022-05-22] MEDS ORDERED: IOPAMIDOL 370 MG/ML 100 ML INFUS..BTL INJ ONE (12:25)
[2022-05-22] MEDS ORDERED: HEPARIN SOD (PORCINE) 1000 UNIT/ML 30ML ONE (12:28)
[2022-05-22] MEDS ORDERED: NITROGLYCERIN/D5W 200 MCG/ML 250 ML ONE (12:29)
[2022-05-22] MEDS ORDERED: HEPARIN SOD/SOD CHLORIDE 1,000 ML ONE (12:29)
[2022-05-22] MEDS ORDERED: SODIUM CHLORIDE 0.9% 1000ML 1,000 ML ONE (12:29)
[2022-05-22] MEDS ORDERED: LIDOCAINE HCL 2% LOCAL INJ 5 ML SDV VIAL INJ ONE (12:29)
[2022-05-22] MEDS ORDERED: MIDAZOLAM HCL 2 MG/2 ML VIAL ONE (12:36)
[2022-05-22] MEDS ORDERED: VERAPAMIL HCL 2.5 MG/ML 2 ML VIAL ONE (12:36)
[2022-05-22] MEDS ORDERED: FENTANYL CITRATE/PF 100MCG/2 ML INJ ONE (12:37)
[2022-05-22] MEDS ORDERED: ONDANSETRON HCL INJ 2MG/ML 2ML 2 MG/ML VIAL IV PRN (13:45)
[2022-05-22] MEDS ORDERED: SODIUM CHLORIDE 0.9% 1000ML 1,000 ML IV SCH (13:45)
[2022-05-22] MEDS ORDERED: ASPIRIN 81 MG CHEW TAB ONE (14:03)
[2022-05-22] MEDS ORDERED: METOPROLOL TARTRATE 50 MG TAB PO ONE (14:15)
[2022-05-22] MEDS ORDERED: HEPARIN 25,000 UNIT 600 UNIT in DEXTROSE 5% 250ML 250 ML IV STA (14:17)
[2022-05-22] MEDS ORDERED: HEPARIN 25,000 UNIT 600 UNIT in DEXTROSE 5% 250ML 250 ML IV SCH (14:30)
[2022-05-22] MEDS ORDERED: ENOXAPARIN SOD INJ 60 MG/0.6 ML SYR SC SCH (17:00)
== END 2022-05-22 19:10 | disposition hospice, home (50) | DRG 242 ==
LOC: ER 13:49 → ERHOLD 16:54 → MED/SURG2 20:02 → MED/SURG 05-18 11:40
PROVIDERS: ADMIT Internal Medicine; ATTEND Internal Medicine
PROC: 0JH606Z Insertion of Pacemaker, Dual Chamber into Chest Subcutaneous Tissue and Fascia, Open Approach (ICD-10-PCS; 2022-05-17)
PROC: 02H63JZ Insertion of Pacemaker Lead into Right Atrium, Percutaneous Approach (ICD-10-PCS; 2022-05-17)
PROC: 02HK3JZ Insertion of Pacemaker Lead into Right Ventricle, Percutaneous Approach (ICD-10-PCS; 2022-05-17)
PROC: 02703ZZ Dilation of Coronary Artery, One Artery, Percutaneous Approach (ICD-10-PCS; principal; 2022-05-22)
PROC: 4A023N7 Measurement of Cardiac Sampling and Pressure, Left Heart, Percutaneous Approach (ICD-10-PCS; 2022-05-22)
PROC: B3101ZZ Fluoroscopy of Thoracic Aorta using Low Osmolar Contrast (ICD-10-PCS; 2022-05-22)
DX: I44.2 Atrioventricular block, complete (principal); I21.4 Non-ST elevation (NSTEMI) myocardial infarction; I69.351 Hemiplegia and hemiparesis following cerebral infarction affecting right dominant side; N17.9 Acute kidney failure, unspecified; N39.0 Urinary tract infection, site not specified; I25.110 Atherosclerotic heart disease of native coronary artery with unstable angina pectoris; R00.1 Bradycardia, unspecified; E11.69 Type 2 diabetes mellitus with other specified complication; E78.5 Hyperlipidemia, unspecified; Z20.822 Contact with and (suspected) exposure to COVID-19; Z51.5 Encounter for palliative care; I25.82 Chronic total occlusion of coronary artery; Z53.29 Procedure and treatment not carried out because of patient's decision for other reasons; F41.9 Anxiety disorder, unspecified; D64.9 Anemia, unspecified
CPT/HCPCS: 33208; 36415; 71045; 76937; 80048; 80053; 81001; 82550; 82553; 82948; 83735; 84100; 84484; 85025; 85610; 85730; 86850; 86900; 92920; 93005; 93458; 94799; 96360; 96361; 99152; 99153; 99251; 99285; C1725; C1769; C1785; C1887; C1898; J0696; J1580; J1644; J1650; J2001; J2250; J3010; J3370; J7030; J7040; J7050; J7121; Q9967